=== PATIENT | male | born 1990 | race Caucasian/White ===

== ENCOUNTER 2021-03-11 10:59 | Emergency (ER) | payer OTHER, SELFPAY ==
[2021-03-11 11:15] VITALS: BP 123/62; PULSE 87; RESP 17; TEMP 36.2; O2SAT 100
--- NOTE | 2021-03-11 11:29 | ED.SKABFB ---
HPI - Skin/Abscess/Foreign Bdy General Chief complaint: Skin/Abscess/Foreign Body Stated complaint: poison neha to face Time Seen by Provider: 03/11/21 11:22 Source: patient Mode of arrival: ambulatory Limitations: no limitations History of Present Illness HPI narrative: This is a 30 year old male that presents to the ER for rash present since Thursday. 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 Reports after this he noted a diffuse itchy rash. He has not been taking any medications for this. Does report history of similar reactions to poison neha in the past. Also reports a rash to the right side of his groin which has been present over the last couple of months. Denies fever. Related Data Allergies Allergy/AdvReac Type Severity Reaction Status Date / Time No Known Drug Allergies Allergy Unknown Verified 12/06/15 04:38 Bumble Bee Allergy Intermediate Uncoded 12/06/15 04:38 Review of Systems Review of Systems: CONSTITUTIONAL: Denies fever SKIN: Reports rash and itching. All systems reviewed & are unremarkable except as noted in HPI and below PMFSH Surgical History Surgical History (Updated 03/11/21 @ 11:40 by Stephanie Garcia PA-C) History of tonsillectomy Social History Social History (Updated 03/11/21 @ 11:40 by Stephanie Garcia PA-C) Substance use: never Exam Narrative: GENERAL: Well-appearing, well-nourished, and in no acute distress. HEAD: Normocephalic, atraumatic. EYES: EOMI. ENT: Nares clear, no rhinorrhea or epistaxis. Mucous membranes moist. Oropharynx without tonsillar hypertrophy, exudate or other lesions. CHEST: No respiratory distress. HEART: Regular rate EXTREMITIES: Normal range of motion. No edema. SKIN: Warm, dry. Papular rash present over the back, abdomen, and arms. Mild swelling and redness of the eyelids noted NEURO: No focal deficits. Alert and oriented x3. PSYCH: Normal mood and affect Course Vital Signs Vital signs: Vital Signs Temperature 97.2 F L 03/11/21 11:15 Pulse Rate 87 03/11/21 11:15 Respiratory Rate 17 03/11/21 11:15 Blood Pressure 123/62 03/11/21 11:15 Pulse Oximetry 100 03/11/21 11:15 Temperature 97.2 F L 03/11/21 11:15 Pulse Rate 87 03/11/21 11:15 Respiratory Rate 17 03/11/21 11:15 Blood Pressure 123/62 03/11/21 11:15 Pulse Oximetry 100 03/11/21 11:15 MDM - Skin/Abscess/Foreign Bdy MDM Narrative Medical decision making narrative: Patient presents to the emergency department for contact dermatitis due to poison neha. Rash noted scattered throughout the body. Will be started on steroid taper and antihistamines. Also reporting a rash to the right groin which has been present over the last couple of months. Consistent with likely tinea cruris. Will be started on clotrimazole cream for this. Patient is stable and felt appropriate for further outpatient evaluation. He was given warnings to return to the ER Critical Care Time Critical Care Time Critical Care Time: No Discharge Plan Discharge Clinical Impression: Contact dermatitis due to poison neha, Tinea cruris Patient Disposition: Home, Self-Care Condition: Stable Instructions: Poison Neha (ED), Jock Itch (ED) Additional Instructions: Return to the emergency department if you experience fever, redness and swelling of your wounds, abnormal drainage from your wounds, or any other symptoms that are concerning to you Take a Pepcid and Claritin daily. Take steroid taper as prescribed. You were given your first dose today. You may start this tomorrow. Benadryl as needed for severe itching. Apply clotrimazole cream to the rash in your groin over the next 2 weeks. If it does not resolve after this you may need to see a toy painter Follow-up with primary care doctor Prescriptions: New clotrimazole 1 % cream 1 applic topical BID 14 Days Qty: 15 RF: 0 prednisone 10 mg tablet 10 mg PO DAILY Qty: 45 RF: 0 Follow-up/Re
[2021-03-11] MEDS: diphenhydrAMINE HCl CAP 25 MG CAPSULE PO (12:11)
[2021-03-11] MEDS: FAMOTIDINE 20 MG TABLET PO (12:11)
[2021-03-11 12:24] VITALS: BP 135/92; PULSE 87; RESP 18; O2SAT 97
== END 2021-03-11 12:25 | disposition home or self-care (01) ==
LOC: ANHED 11:47
PROVIDERS: Emergency Provider Emergency Medicine
DX: L23.7 Allergic contact dermatitis due to plants, except food (principal); B35.6 Tinea cruris
CPT/HCPCS: 96372; 99283; A9270; J1100

== ENCOUNTER 2021-05-07 22:11 | Emergency (ER) | payer SELFPAY ==
[2021-05-07 22:31] VITALS: BP 132/79; PULSE 84; RESP 18; TEMP 35.9; O2SAT 100
[2021-05-07 23:39] VITALS: BP 141/79; PULSE 90; RESP 16; TEMP 36.7; O2SAT 100
--- NOTE | 2021-05-08 01:30 | ED.GENADULT ---
HPI - General Adult General Chief complaint: Wound/Laceration Stated complaint: laceration to right foot Time Seen by Provider: 05/08/21 01:25 History of Present Illness HPI narrative: Patient is a 30-year-old gentleman who presents the emergency department with chief complaint of wound to the right foot. Patient reports on Halloween he injured his right foot and laceration on the dorsum of the left foot. Patient states that at that time he decided not to come to the emergency department for suture repair and has been managing it conservatively at home. Patient states that his girlfriend suggested he come to the emergency department for evaluation. Patient denies fever denies red streaking up his leg reports the area around the wound is slightly reddened. Patient reports is painful whenever he walks. The patient states that his last tetanus shot was over a 2011. Related Data Allergies Allergy/AdvReac Type Severity Reaction Status Date / Time No Known Drug Allergies Allergy Unknown Unknown Verified 05/07/21 22:36 Bumble Bee Allergy Intermediate Unknown Uncoded 05/07/21 22:36 Review of Systems Review of Systems: A 10 system review of systems was completed on the patient and is negative except for what is stated in the HPI. Nursing and ancillary documentation was reviewed. [facility] Surgical History Surgical History History of tonsillectomy Social History Social History Substance use: never Exam Narrative: GENERAL: Well-appearing, well-nourished, and in no acute distress. HEAD: Normocephalic, atraumatic. EYES: PERRLA and EOMI. ENT: Nares clear, no rhinorrhea or epistaxis. Mucous membranes moist. NECK: Supple. CHEST: Clear to auscultation. No respiratory distress. HEART: Regular rate and rhythm. No murmur heard. Normal peripheral pulses. ABDOMEN: Soft, nontender, nondistended, normal active bowel sounds. EXTREMITIES: Normal range of motion. No edema. There is a 4 cm laceration on the medial aspect of the dorsum of the left foot. Patient has full range of motion there is slight erythema around the wound SKIN: Warm, dry, no rash. NEURO: No focal deficits. Alert and oriented x3. PSYCH: Normal mood and affect. Course Course Emergency Course: Since the wound is approximately 10 days old the wound cannot be closed at this time. The patient was instructed to wound care the patient's tetanus was updated. The patient will be started on Keflex as an outpatient. Vital Signs Vital signs: Vital Signs Temperature 35.9 C L 05/07/21 22:31 Pulse Rate 84 05/07/21 22:31 Respiratory Rate 18 05/07/21 22:31 Blood Pressure 132/79 05/07/21 22:31 Pulse Oximetry 100 05/07/21 22:31 Temperature 36.7 C 05/07/21 23:39 Pulse Rate 90 05/07/21 23:39 Respiratory Rate 16 05/07/21 23:39 Blood Pressure 141/79 H 05/07/21 23:39 Pulse Oximetry 100 05/07/21 23:39 Medical Decision Making Vital Signs Vital Signs: Vital Signs Temperature 35.9 C L 05/07/21 22:31 Pulse Rate 84 05/07/21 22:31 Respiratory Rate 18 05/07/21 22:31 Blood Pressure 132/79 05/07/21 22:31 Pulse Oximetry 100 05/07/21 22:31 Temperature 36.7 C 05/07/21 23:39 Pulse Rate 90 05/07/21 23:39 Respiratory Rate 16 05/07/21 23:39 Blood Pressure 141/79 H 05/07/21 23:39 Pulse Oximetry 100 05/07/21 23:39 Discharge Plan Discharge Clinical Impression: Laceration, Wound infection, posttraumatic Patient Disposition: Home, Self-Care Condition: Stable Instructions: Antibiotic Form, Laceration (ED), Wound Infection (ED), Acute Wounds (ED) Prescriptions: New cephalexin 500 mg capsule 500 mg PO Q6H 7 Days Qty: 28 RF: 0 No Action clotrimazole 1 % cream 1 applic topical BID 14 Days Qty: 15 RF: 0 prednisone 10 mg tablet 10 mg PO DAILY Qty: 45 RF: 0 Follow-up/[facility]
[2021-05-08] MEDS: TETANUS,DIPHTHERIA,AC PERTUSSIS ADULT (0.5 ML) BOOSTRIX IM (01:40)
[2021-05-08] MEDS: CEPHALEXIN 500 MG CAPSULE PO (01:40)
[2021-05-08 01:46] VITALS: BP 139/82; PULSE 64; RESP 18; O2SAT 100
== END 2021-05-08 01:47 | disposition home or self-care (01) ==
PROVIDERS: Emergency Provider Emergency Medicine
DX: S91.311A Laceration without foreign body, right foot, initial encounter (principal); W22.8XXA Striking against or struck by other objects, initial encounter; L08.9 Local infection of the skin and subcutaneous tissue, unspecified; Z23 Encounter for immunization
CPT/HCPCS: 90471; 90715; 99283; A9270

== ENCOUNTER 2021-11-09 16:59 | Emergency (ER) | payer BC, SELFPAY ==
[2021-11-09 17:14] VITALS: BP 133/81; PULSE 68; RESP 18; TEMP 36.6; O2SAT 98
--- NOTE | 2021-11-09 17:18 | ED.GENADULT ---
HPI - General Adult General Chief complaint: Skin/Abscess/Foreign Body Stated complaint: rash Source: patient Mode of arrival: ambulatory Limitations: no limitations History of Present Illness HPI narrative: Patient is a 31-year-old male who presents to the [facility] via [facility] for an evaluation of a skin problem approximately 3 days ago. 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 Rash is linear, vesicular, pruritic, weeping, and erythematous. No relief with Neha Dry. Related Data Allergies Allergy/AdvReac Type Severity Reaction Status Date / Time No Known Drug Allergies Allergy Unknown Unknown Verified 11/09/21 17:18 Bumble Bee Allergy Intermediate Unknown Uncoded 11/09/21 17:18 Review of Systems Review of Systems: Pertinent negatives fever, chills, sweats, change in appetite, malaise, poor p.o. intake, recent weight loss, change in appetite, myalgias, lymphadenopathy, LOC, dizziness, burning sensation, petechiae, swelling, streaking, warmth, lesions, easy bruising, lip/tongue/throat swelling, facial swelling, abdominal pain, nausea, vomiting, numbness, tingling, loss of sensation, cough, wheezing, chest pain, and heart palpitations/murmurs. [facility] Surgical History Surgical History History of tonsillectomy Social History Social History Substance use: never Comments I have reviewed and agree with the patient's past medical, surgical, social, and family hx as documented by the RN. There is no relevant family history pertinent to the presenting complaint. Exam Narrative: GENERAL: Well-appearing, well-nourished, and in no acute distress. HEAD: Normocephalic, atraumatic. No facial swelling appreciated. EYES: PERRLA and EOMI. No evidence of erythema, swelling, or drainage. ENT: Nares clear, no rhinorrhea or epistaxis.Mucous membranes moist and pink. Uvula is midline without erythema and swelling. No evidence of obstruction, petechial rash, cobblestoning, lesions, ulcers, erythema, swelling, exudates, peritonsillar abscess, tenting, or drooling. Breath odor and voice normal. NECK: Supple. No Lymphadenopathy or nuchal rigidity appreciated. CHEST: Bilateral lung levy are clear to auscultation. No respiratory distress. No evidence of cough or pleuritic cp upon examination. HEART: Regular rate and rhythm. No murmur, gallop, or rub heard. EXTREMITIES: Normal range of motion. No edema. SKIN: Warm, dry. Mild rash noted diffusely. Rash is consistent with contact dermatitis. Rash is weeping a small amount of serous drainage. No evidence of cellulitis, abscess, streaking, induration, or bleeding. NEURO: No focal deficits. Alert and oriented x3. Course Course Level of Care: Express Care Visit Vital Signs Vital signs: Vital Signs Temperature 98 F 11/09/21 17:14 Pulse Rate 68 11/09/21 17:14 Respiratory Rate 18 11/09/21 17:14 Blood Pressure 133/81 11/09/21 17:14 Pulse Oximetry 98 11/09/21 17:14 Temperature 98 F 11/09/21 17:14 Pulse Rate 68 11/09/21 17:14 Respiratory Rate 18 11/09/21 17:14 Blood Pressure 133/81 11/09/21 17:14 Pulse Oximetry 98 11/09/21 17:14 Reviewed Medical Decision Making Differential Diagnosis Differential Diagnosis: Contact/allergic dermatitis, atopic dermatitis, psoriasis, cellulitis, tinea infection, parasite infection, shingles Medical Records Medical records reviewed: Yes I reviewed the external patient's medical records. Vital Signs Vital Signs: Vital Signs Temperature 98 F 11/09/21 17:14 Pulse Rate 68 11/09/21 17:14 Respiratory Rate 18 11/09/21 17:14 Blood Pressure 133/81 11/09/21 17:14 Pulse Oximetry 98 11/09/21 17:14 Temperature 98 F 11/09/21 17:14 Pulse Rate 68 11/09/21 17:14 Respiratory Rate 18 11/09/21 17:14 Blood Pressure 133/81 11/09/21 17:14 Pulse Oximetr
== END 2021-11-09 17:42 | disposition home or self-care (01) ==
PROVIDERS: Emergency Provider Nurse Practitioner Family
DX: L23.7 Allergic contact dermatitis due to plants, except food (principal)
CPT/HCPCS: 99213; G0463

== ENCOUNTER 2022-03-04 11:17 | Emergency (ER) | payer BC, SELFPAY ==
--- NOTE | 2022-03-04 11:22 | ED.URI ---
HPI - URI/Sore Throat General Chief Complaint: Upper Respiratory Infection Stated Complaint: Chills,Headache,Cough Time Seen by Provider: 03/04/22 11:22 Source: patient, RN notes reviewed and old records reviewed Mode of arrival: ambulatory Limitations: no limitations History of Present Illness HPI Narrative: 31-year-old male presents to the [facility] with complaints of chills, headache, cough and fever symptoms less than 24 hours. Reports 100.8 fever last night. Has only taken ibuprofen for her fever Reports daughter at home tested positive for COVID on MD elicited complaint: fever and cough Related Data Home Medications Medication Instructions Recorded Confirmed No Home Medications 03/04/22 03/04/22 Allergies Allergy/AdvReac Type Severity Reaction Status Date / Time No Known Drug Allergies Allergy Unknown Unknown Verified 03/04/22 11:32 Bumble Bee Allergy Intermediate Unknown Uncoded 03/04/22 11:32 Review of Systems Review of Systems: All systems reviewed & are unremarkable except as noted in HPI and below Constitutional: Constitutional: Reports as per HPI, Denies chills, Reports fatigue and Reports fever(s) Eyes: Eyes: Reports no additional eye complaints ENT: Reports as per HPI Cardiovascular: Cardiovascular: Reports no additional cardiovascular complaints Respiratory: Respiratory: Reports no additional respiratory complaints Gastrointestinal: Gastrointestinal: Reports no additional gastrointestinal complaints Musculoskeletal: Musculoskeletal: Reports no additional musculoskeletal complaints Integumentary/Breasts: Skin/Breast: Reports system reviewed and no additional complaints, except as docu Neurologic: Reports system reviewed and no additional complaints, except as documented Psychiatric: Psychiatric: Reports no additional psychiatric complaints Allergic/Immunologic: Allergic/Immunologic: Reports no additional allergic/immunologic complaints PMFSH Surgical History Surgical History History of tonsillectomy Social History Social History Substance use: never Comments At the time of my signature, I reviewed and agree with the nursing past medical, surgical, social, and family history. There is no relevant family history pertinent to the patient complaint. Exam Const: General: healthy appearing, no acute distress and alert Nutritional Appearance: well nourished Orientation/consciousness: patient oriented x3 Limitations: no limitations HENMT: Head: normal to inspection Ears: external ears normal, TM's normal bilaterally and EAC's normal General nose exam: Normal external nose present and Normal nares present Throat: posterior oropharynx normal and uvula midline Eyes: General: appearance normal, both eyes and all related structures Pupils: Equal, round and reactive pupils present Neck: Neck: normal visual inspection, no lymphadenopathy and no meningeal signs Chest: Chest palpation & inspection: normal inspection of the chest Resp: Effort & Inspection: normal respiratory effort and no use of accessory muscles Auscultation: clear to auscultation bilaterally, no crackles, no rales, no rhonchi and no wheezes Cardio: Rate: regular rate Rhythm: regular rhythm Back/Spine/Pelvis: Cervical Spine: normal cervical lordosis Thoracic/Lumbar Spine: thoracic and lumbar spine normal to inspection Skin: General skin exam: normal color Rashes: no rashes Wounds: no wounds Neuro: General: patient oriented x3, moves all extremities, no meningeal signs and no focal motor deficits Cranial nerves: Yes Equal, round and reactive pupils present Speech: normal speech Gait exam (Neuro): Normal gait present Extrem: General: normal to inspection, full ROM and capillary refill normal Psych: Appearance: grossly normal and well kempt Mental Status: mental status grossly normal Affect: no
[2022-03-04 11:25] VITALS: BP 130/84; PULSE 72; RESP 18; TEMP 35.9; O2SAT 100
[2022-03-04 19:39] LABS: SARS-CoV-2 RNA PCR Positive
== END 2022-03-04 12:05 | disposition home or self-care (01) ==
PROVIDERS: Emergency Provider Nurse Practitioner
DX: U07.1 COVID-19 (principal)
CPT/HCPCS: 99213; C9803; G0463; U0003; U0005

== ENCOUNTER 2022-11-04 09:43 | Emergency (ER) | payer SELFPAY ==
--- NOTE | ~2022-11-04 | CT_ITS ---
Non-contrast CT scan of the Abdomen and Pelvis Clinical indication: Right flank pain Technique: 2.5 mm axial scans were obtained through the abdomen and pelvis without intravenous or or al contrast. Dose reduction technique was used on this scan by utilizing automated exposure control a nd iterative reconstruction technique. The dose-length product (DLP) was 758.41 mGy-cm. Findings: Images through the lung bases reveal no abnormalities. There is no evidence of renal or ureteral calculi. The kidneys and the ureters are nondilated. Hepatic cysts noted The spleen, pancreas, gallbladder, and adrenals appear normal. There is no aorti c aneurysm. There is no evidence of bowel obstruction. Normal appendix. Images through the pelvis were performed. There is no evidence of ascites or lymphadenopathy. Urinary bladder unremarkable. No pelvic mass seen. Impression: No significant abnormality seen. Reviewed, dictated and finalized at [facility]. Impression: No significant abnormality seen.
[2022-11-04 09:46] VITALS: BP 111/86; PULSE 86; RESP 16; TEMP 36.7; O2SAT 100
[2022-11-04 10:18] LABS: Appearance Urine Clear (Clear); Bacteria Urine None Seen /hpf; Bilirubin Urine Negative (Negative); Blood Urine Negative (Negative); Color Urine Yellow (Yellow); Glucose Urine UA Negative (Negative); Ketones Urine Negative (Negative); Leukocyte Esterase Ur Trace LEU/UL (Negative); Nitrate Urine Negative (Negative); Non Pathogenic Casts 0-2; Protein Urine Negative (Negative); RBC Urine 0-2 /hpf (0-2); Specific Grav Ur 1.019 (1.001-1.035); Squamous Epithelial Cell Urine None seen /hpf (Few); Urobilinogen Urine 0.2 mg/dL (<2.0); pH Urine 5.5 (5.0-9.0)
[2022-11-04 10:22] LABS: Add Urine Microscopic? YES
[2022-11-04] MEDS: ACETAMINOPHEN 500 MG TABLET 1000 MG PO (10:23)
--- NOTE | 2022-11-04 10:43 | ED.MALEGU ---
HPI - Male Genitourinary General Chief complaint: Urogenital-Male Stated complaint: Kidney stone Time Seen by Provider: 11/04/22 09:51 History of Present Illness HPI Narrative: This is a 32-year-old male with no significant past medical history, who presents to the emergency department complaining of increased urinary frequency and dysuria for the past 2 days. He also complains of mild (3/10) right flank pain, described as dull and intermittently sharp. He denies recent trauma, hematuria or abnormal penile discharge. He is sexually active with his spouse only who has not had similar symptoms. Related Data Allergies Allergy/AdvReac Type Severity Reaction Status Date / Time No Known Drug Allergies Allergy Unknown Unknown Verified 03/04/22 11:32 Bumble Bee Allergy Intermediate Unknown Uncoded 03/04/22 11:32 Review of Systems Review of Systems: CONSTITUTIONAL: Malaise Denies fever, chills, or sweats. CARDIOVASCULAR: Denies chest pain, palpitations, or edema. RESPIRATORY: Denies cough or dyspnea. GASTROINTESTINAL: Denies abdominal pain, nausea, vomiting, or diarrhea. GENITOURINARY: Dysuria denies dysuria or hematuria. SKIN: Denies rash or itching. MUSCULOSKELETAL: Denies back pain, joint pain, or myalgia. NEUROLOGIC: Denies headache, numbness, dizziness or weakness PSYCHIATRIC: Denies anxiety or depression. [facility] Surgical History Surgical History History of tonsillectomy Social History Social History (Updated 11/04/22 @ 19:47 by Javier Bell MD) Smoking status: Never smoker Alcohol intake: current Drinks per week: 1 Substance use: never Exam Narrative: GENERAL: Well-developed, well-nourished, and in no acute distress. HEAD: Normocephalic, atraumatic. EYES: PERRLA and EOMI. CHEST: Clear to auscultation. No respiratory distress. No wheezes rales or rhonchi HEART: Regular rate and rhythm. No murmur heard. Normal peripheral pulses. ABDOMEN: Soft, nontender, nondistended, normal active bowel sounds. Right CVA tenderness to palpation. : Normal circumcised male genitalia. Normal appearing scrotum. No noted purulent drainage or bleeding at the urethral meatus. EXTREMITIES: The left lower extremity appears atrophied compared to the right. Normal range of motion. No edema. SKIN: Warm, dry, no rash. NEURO: No focal deficits. Alert and oriented x3. PSYCH: Normal mood and affect. Course Course Emergency Course: 11:10 - UA demonstrates WBCs and leukocyte esterase with a small amount of blood. Chemistries demonstrate mild hyponatremia at [address] is [address] not concerning for stone. Will discharge and treat for pyelonephritis. I advised the patient to follow up with a primary care doctor. Discussed return and emergency precautions including signs/symptoms of sepsis and ACS. The patient voiced understanding and is comfortable with the plan. All questions answered to his satisfaction. Vital Signs Vital signs: Vital Signs Temperature 98.1 F 11/04/22 09:46 Pulse Rate 86 11/04/22 09:46 Respiratory Rate 16 11/04/22 09:46 Blood Pressure 111/86 11/04/22 09:46 Pulse Oximetry 100 11/04/22 09:46 Oxygen Delivery Room Air 11/04/22 09:46 Temperature 98.1 F 11/04/22 09:46 Pulse Rate 86 11/04/22 09:46 Respiratory Rate 16 11/04/22 09:46 Blood Pressure 111/86 11/04/22 09:46 Pulse Oximetry 100 11/04/22 09:46 Oxygen Delivery Room Air 11/04/22 09:46 MDM - Male Genitourinary MDM Narrative Medical decision making narrative: Plan: Labs, imaging, reassess Differential Diagnosis Differential diagnosis: Likely urinary tract infection and other (ureterolithiasis, pyelonephritis, metabolic abnormality, other) Lab Data 11/04/22 10:47 Labs: Lab Results 11/04/22 11/04/22 Range/Units 09:59 10:47 Sodium 135 L (137-145) mmol/L Potassium 4.4 (3.4-5.0) mmol/L Chloride 98 (98-1
[2022-11-04 11:08] LABS: Anion Gap 6 mmol/L (8-16); Blood Urea Nitrogen 14 mg/dL (9-20); Calcium 8.7 mg/dL (8.4-10.2); Carbon Dioxide 31 mmol/L (22-30); Chloride 98 mmol/L (98-107); Estimated Glomerular Filt Rate > 60; Glucose 94 mg/dL (65-110); Potassium 4.4 mmol/L (3.4-5.0); Sodium 135 mmol/L (137-145)
== END 2022-11-04 11:28 | disposition home or self-care (01) ==
PROVIDERS: Emergency Provider Preventive Medicine Aerospace Medicine
DX: N12 Tubulo-interstitial nephritis, not specified as acute or chronic (principal); R30.0 Dysuria
CPT/HCPCS: 36415; 74176; 80048; 81001; 87086; 87147; 87181; 87186; 99283; A9270